=== PATIENT | female | born 1995 | race Caucasian/White ===

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

== ENCOUNTER 2018-12-23 18:41 | Inpatient (IN) | payer MEDICAID ==
[~2018-12-23] VITALS: Ht 142.2 cm; Wt 67.4 kg
[~2018-12-23 18:41] MED LIST changes: -DIAZ2.5K2 PR; -FER325 PO; +KEP100S PO; +LEVE500S8 PO; -LEVE500S9 PO; -MOTS PO; -UDTYL PO
[2018-12-23] MEDS ORDERED: LORAZEPAM 2 MG INJ ONE (18:56)
[2018-12-23] MEDS ORDERED: LEVETIRACETAM 1000 MG (PMX) 100 ML IVPB STA (18:58)
[2018-12-23] MEDS ORDERED: SOD CHLORIDE 0.9% 1,000 ML IV STA ×2 (18:58→19:47)
[2018-12-23] MEDS ORDERED: LORAZEPAM 2 MG INJ IV STA (18:58)
[2018-12-23] MEDS ORDERED: ALBUTEROL 0.5% (NEB) 2.5 MG/0.5 ML AMP INH STA (19:09)
[2018-12-23] MEDS ORDERED: IPRATROPIUM (NEB) 0.5 MG/2.5 ML AMP INH STA (19:09)
[2018-12-23] MEDS ORDERED: KETOROLAC 15 MG INJ IV STA ×2 (19:47→23:57)
[2018-12-23] MEDS ORDERED: ONDANSETRON 4 MG INJ IV PRN (21:30)
[2018-12-23] MEDS ORDERED: LORAZEPAM 2 MG INJ IV PRN (21:30)
[2018-12-23] MEDS: ACETAMINOPHEN 650 MG SUPP PR PRN (23:06)
[2018-12-23] MEDS: SOD CHLORIDE 0.9% 1,000 ML IV SCH (23:13)
[2018-12-24] VITALS (69 sets, daily range): BP systolic 63–125; BP diastolic 33–95; PULSE 57–142; RESP 0–82; Ht 142.2 cm; Wt 67.4 kg
[2018-12-24] MEDS ORDERED: VANCOMYCIN IV PER PHARMACY XX SCH
[2018-12-24] MEDS: AMPICILLIN/SULB 3 GM/NS (PMX) 100 ML IVPB SCH ×2 (00:11→05:25)
[2018-12-24] MEDS ORDERED: SOD CHLORIDE 0.9% 1,000 ML IV ONE (00:30)
[2018-12-24] MEDS: VANCOMYCIN 1 GM 250 ML IVPB SCH ×2 (01:16→14:50)
[2018-12-24] MEDS: ALBUMIN HUMAN 25% 100 ML IV SCH ×2 (02:01→04:07)
[2018-12-24] MEDS ORDERED: PHENYLephrine 20MG IN 250 ML 250 ML IV SCH (04:00)
[2018-12-24] MEDS: PHENYLephrine 20MG IN 250 ML 250 ML IV SCH ×2 (04:27→14:05)
[2018-12-24] MEDS: PANTOPRAZOLE 40 MG INJ IV SCH (05:25)
[2018-12-24] MEDS: LEVALBUTEROL (NEB) 0.63 MG/3 ML AMP HHN SCH ×4 (08:10→20:22)
[2018-12-24] MEDS: IPRATROPIUM (NEB) 0.5 MG/2.5 ML AMP HHN SCH ×4 (08:10→20:21)
[2018-12-24] MEDS: LEVETIRACETAM 500 MG (PMX) 100 ML IVPB SCH ×2 (09:05→20:09)
[2018-12-24] MEDS: KETOROLAC 30 MG INJ IV PRN ×2 (10:41→21:42)
[2018-12-24] MEDS: ACETAMINOPHEN 650 MG SUPP PR PRN ×2 (11:52→20:25)
[2018-12-24] MEDS: SOD CHLORIDE 0.9% 1,000 ML IV SCH ×2 (13:53→21:10)
[2018-12-24] MEDS: PIPER-TAZO 3.375 GM IV (PMX) 100 ML IVPB SCH ×2 (14:09→21:25)
[2018-12-25] VITALS (52 sets, daily range): BP systolic 79–124; BP diastolic 42–97; PULSE 70–120; RESP 14–110
[2018-12-25] MEDS: IPRATROPIUM (NEB) 0.5 MG/2.5 ML AMP HHN SCH ×6 (00:58→21:18)
[2018-12-25] MEDS: LEVALBUTEROL (NEB) 0.63 MG/3 ML AMP HHN SCH ×6 (00:58→21:18)
[2018-12-25] MEDS: VANCOMYCIN 750 MG (PMX) 250 ML IVPB SCH ×2 (01:28→09:53)
[2018-12-25] MEDS: KETOROLAC 30 MG INJ IV PRN ×2 (02:54→08:45)
[2018-12-25] MEDS: PANTOPRAZOLE 40 MG INJ IV SCH (05:31)
[2018-12-25] MEDS: PIPER-TAZO 3.375 GM IV (PMX) 100 ML IVPB SCH ×3 (05:31→21:34)
[2018-12-25] MEDS ORDERED: SOD CHLORIDE 0.9% 250 ML IV* ONE (06:03)
[2018-12-25] MEDS: PHENYLephrine 20MG IN 250 ML 250 ML IV SCH (06:27)
[2018-12-25] MEDS ORDERED: POTASSIUM CHLORIDE 50 ML ONE (06:34)
[2018-12-25] MEDS: POTASSIUM CHLORIDE 50 ML IVPB SCH ×3 (06:46→13:42)
[2018-12-25] MEDS ORDERED: ETOMIDATE 20 MG INJ ONE (07:00)
[2018-12-25] MEDS ORDERED: VECURONIUM 10 MG VIAL ONE (07:00)
[2018-12-25] MEDS ORDERED: MAGNESIUM SULFATE 2 GM/50 ML 50 ML IVPB ONE (08:00)
[2018-12-25] MEDS: LORAZEPAM 2 MG INJ IV PRN (08:15)
[2018-12-25] MEDS: LEVETIRACETAM 500 MG (PMX) 100 ML IVPB SCH ×2 (08:52→20:49)
[2018-12-25] MEDS: PROPOFOL 100 ML IV SCH ×2 (09:54→19:24)
[2018-12-25] MEDS ORDERED: SODIUM PHOSPHATE 15 MMOL in SOD CHLORIDE 0.9% 250 ML IVPB ONE (18:00)
[2018-12-25] MEDS: ACETAMINOPHEN 650 MG SUPP PR PRN (19:37)
[2018-12-26] VITALS (51 sets, daily range): BP systolic 64–112; BP diastolic 40–74; PULSE 76–120; RESP 16–27
[2018-12-26] MEDS: LEVALBUTEROL (NEB) 0.63 MG/3 ML AMP HHN SCH ×5 (01:15→17:09)
[2018-12-26] MEDS: IPRATROPIUM (NEB) 0.5 MG/2.5 ML AMP HHN SCH ×5 (01:15→17:09)
[2018-12-26] MEDS: LORAZEPAM 2 MG INJ IV PRN (05:16)
[2018-12-26] MEDS: PROPOFOL 100 ML IV SCH ×4 (05:42→23:04)
[2018-12-26] MEDS: PANTOPRAZOLE 40 MG INJ IV SCH (05:42)
[2018-12-26] MEDS: PIPER-TAZO 3.375 GM IV (PMX) 100 ML IVPB SCH ×3 (05:44→21:09)
[2018-12-26] MEDS: PHENYLephrine 20MG IN 250 ML 250 ML IV SCH ×3 (07:52→21:55)
[2018-12-26] MEDS ORDERED: POTASSIUM CHLORIDE 20 MEQ POWDER FOR ORAL SOLN NGT ONE (08:30)
[2018-12-26] MEDS: LEVETIRACETAM 500 MG (PMX) 100 ML IVPB SCH ×2 (08:43→20:08)
[2018-12-26] MEDS: THIAMINE 100 MG TAB NGT SCH (08:44)
[2018-12-26] MEDS ORDERED: MAGNESIUM SULFATE 2 GM/50 ML 50 ML IVPB ONE (09:00)
[2018-12-26] MEDS ORDERED: POTASSIUM CHLORIDE 20 MEQ POWDER FOR ORAL SOLN PO PRN ×3 (09:00)
[2018-12-26] MEDS: IPRATROPIUM (HFA) 12.9 GM INHALER INH SCH (21:59)
[2018-12-26] MEDS: LEVALBUTEROL (HFA) 15 GM INHALER INH SCH (21:59)
[2018-12-27] VITALS (69 sets, daily range): BP systolic 85–126; BP diastolic 43–79; PULSE 52–125; RESP 15–45
[2018-12-27] MEDS: IPRATROPIUM (HFA) 12.9 GM INHALER INH SCH ×6 (01:04→21:12)
[2018-12-27] MEDS: LEVALBUTEROL (HFA) 15 GM INHALER INH SCH ×6 (01:04→21:12)
[2018-12-27] MEDS: PHENYLephrine 20MG IN 250 ML 250 ML IV SCH ×2 (04:02→11:36)
[2018-12-27] MEDS: PANTOPRAZOLE 40 MG INJ IV SCH (05:19)
[2018-12-27] MEDS: PIPER-TAZO 3.375 GM IV (PMX) 100 ML IVPB SCH ×3 (05:20→21:25)
[2018-12-27] MEDS: PROPOFOL 100 ML IV SCH ×2 (07:28→20:20)
[2018-12-27] MEDS: THIAMINE 100 MG TAB NGT SCH (08:19)
[2018-12-27] MEDS: LEVETIRACETAM 500 MG (PMX) 100 ML IVPB SCH ×2 (08:19→20:17)
[2018-12-27] MEDS ORDERED: VANCOMYCIN IV PER PHARMACY XX SCH (09:00)
[2018-12-27] MEDS ORDERED: MAGNESIUM SULFATE 2 GM/50 ML 50 ML IVPB ONE (09:30)
[2018-12-27] MEDS: LEVOFLOXACIN 500MG/D5W (PMX) 100 ML IVPB SCH (10:39)
[2018-12-27] MEDS ORDERED: VANCOMYCIN 1.25 GM/NS 250 ML 250 ML IVPB SCH (11:00)
[2018-12-27] MEDS: VANCOMYCIN 750 MG (PMX) 250 ML IVPB SCH (12:03)
[2018-12-27] MEDS ORDERED: POTASSIUM PHOSPHATE 30 MM in SOD CHLORIDE 0.9% 250 ML IVPB ONE (12:30)
[2018-12-27] MEDS: ACETAMINOPHEN 650MG/20.3ML CUP NGT PRN (19:40)
[2018-12-28] VITALS (103 sets, daily range): BP systolic 84–125; BP diastolic 42–93; PULSE 69–130; RESP 15–53
[2018-12-28] MEDS: LEVALBUTEROL (HFA) 15 GM INHALER INH SCH ×6 (01:13→21:23)
[2018-12-28] MEDS: IPRATROPIUM (HFA) 12.9 GM INHALER INH SCH ×6 (01:13→21:23)
[2018-12-28] MEDS ORDERED: POLYETHYLENE GLYCOL 17 GM PACKET GTB PRN (02:00)
[2018-12-28] MEDS: ACETAMINOPHEN 650MG/20.3ML CUP NGT PRN ×2 (02:41→20:32)
[2018-12-28] MEDS: DOCUSATE SODIUM 10 MG/ML (10ML CUP) GTB SCH ×3 (02:41→20:32)
[2018-12-28] MEDS: PHENYLephrine 20MG IN 250 ML 250 ML IV SCH ×2 (03:03→18:17)
[2018-12-28] MEDS: PROPOFOL 100 ML IV SCH (04:04)
[2018-12-28] MEDS: VANCOMYCIN 750 MG (PMX) 250 ML IVPB SCH ×2 (04:15→12:32)
[2018-12-28] MEDS: PANTOPRAZOLE 40 MG INJ IV SCH (06:29)
[2018-12-28] MEDS: PIPER-TAZO 3.375 GM IV (PMX) 100 ML IVPB SCH ×3 (06:29→22:22)
[2018-12-28] MEDS ORDERED: MAGNESIUM SULFATE 3 GM in DEXTROSE 5% 100 ML IVPB ONE (07:00)
[2018-12-28] MEDS: LEVETIRACETAM 500 MG (PMX) 100 ML IVPB SCH ×2 (08:20→20:32)
[2018-12-28] MEDS: THIAMINE 100 MG TAB NGT SCH (08:21)
[2018-12-28] MEDS: LEVOFLOXACIN 500MG/D5W (PMX) 100 ML IVPB SCH (08:21)
[2018-12-28] MEDS: MIDAZOLAM 100 MG in SOD CHLORIDE 0.9% 80 ML IV SCH (13:27)
[2018-12-28] MEDS: FENTAnyl (DRIP) 1000 mcg/100mL 100 ML IV SCH (13:29)
[2018-12-28] MEDS: VANCOMYCIN 1 GM 250 ML IVPB SCH (18:21)
[2018-12-29] VITALS (99 sets, daily range): BP systolic 81–134; BP diastolic 42–83; PULSE 55–134; RESP 16–44
[2018-12-29] MEDS: ACETAMINOPHEN 650MG/20.3ML CUP NGT PRN (00:56)
[2018-12-29] MEDS: IPRATROPIUM (HFA) 12.9 GM INHALER INH SCH ×6 (01:06→20:02)
[2018-12-29] MEDS: LEVALBUTEROL (HFA) 15 GM INHALER INH SCH ×6 (01:07→20:02)
[2018-12-29] MEDS: VANCOMYCIN 1 GM 250 ML IVPB SCH ×3 (02:32→18:25)
[2018-12-29] MEDS: PANTOPRAZOLE 40 MG INJ IV SCH (05:02)
[2018-12-29] MEDS: PIPER-TAZO 3.375 GM IV (PMX) 100 ML IVPB SCH ×3 (05:03→21:57)
[2018-12-29] MEDS: FENTAnyl (DRIP) 1000 mcg/100mL 100 ML IV SCH ×2 (05:25→18:30)
[2018-12-29] MEDS: LEVETIRACETAM 500 MG (PMX) 100 ML IVPB SCH ×2 (09:39→21:01)
[2018-12-29] MEDS: THIAMINE 100 MG TAB NGT SCH (09:46)
[2018-12-29] MEDS: DOCUSATE SODIUM 10 MG/ML (10ML CUP) GTB SCH ×2 (09:46→21:01)
[2018-12-29] MEDS: LEVOFLOXACIN 500MG/D5W (PMX) 100 ML IVPB SCH (09:53)
[2018-12-29] MEDS: MIDAZOLAM 100 MG in SOD CHLORIDE 0.9% 80 ML IV SCH ×2 (09:56→22:16)
[2018-12-29] MEDS: PROPOFOL 100 ML IV SCH (10:00)
[2018-12-29] MEDS ORDERED: FUROSEMIDE 40 MG INJ IV STA (12:25)
[2018-12-29] MEDS: METHYLPREDNISOLONE 125 MG INJ IV SCH ×3 (12:35→23:33)
[2018-12-29] MEDS: PHENYLephrine 20MG IN 250 ML 250 ML IV SCH ×2 (14:56→23:36)
[2018-12-30] VITALS (40 sets, daily range): BP systolic 89–129; BP diastolic 49–80; PULSE 56–92; RESP 20–32
[2018-12-30] MEDS: LEVALBUTEROL (HFA) 15 GM INHALER INH SCH ×3 (01:59→09:54)
[2018-12-30] MEDS: IPRATROPIUM (HFA) 12.9 GM INHALER INH SCH ×3 (01:59→09:54)
[2018-12-30] MEDS: VANCOMYCIN 1 GM 250 ML IVPB SCH ×2 (02:42→12:23)
[2018-12-30] MEDS: METHYLPREDNISOLONE 125 MG INJ IV SCH (05:37)
[2018-12-30] MEDS: PANTOPRAZOLE 40 MG INJ IV SCH (05:37)
[2018-12-30] MEDS: PIPER-TAZO 3.375 GM IV (PMX) 100 ML IVPB SCH (05:41)
[2018-12-30] MEDS: FENTAnyl (DRIP) 1000 mcg/100mL 100 ML IV SCH (06:35)
[2018-12-30] MEDS: MIDAZOLAM 100 MG in SOD CHLORIDE 0.9% 80 ML IV SCH (08:52)
[2018-12-30] MEDS: DOCUSATE SODIUM 10 MG/ML (10ML CUP) GTB SCH (09:00)
[2018-12-30] MEDS: THIAMINE 100 MG TAB NGT SCH (09:00)
[2018-12-30] MEDS: LEVETIRACETAM 500 MG (PMX) 100 ML IVPB SCH (10:13)
[2018-12-30] MEDS: LEVOFLOXACIN 500MG/D5W (PMX) 100 ML IVPB SCH (11:16)
[2018-12-30] MEDS ORDERED: VANCOMYCIN 1.25 GM/NS 250 ML 250 ML IVPB SCH (20:00)
== END 2018-12-30 12:40 | disposition short-term general hospital (02) | DRG 870 ==
LOC: E/R 18:41 → ICU 21:02
PROVIDERS: ADMIT Family Medicine; ATTEND Internal Medicine
PROC: 5A1955Z Respiratory Ventilation, Greater than 96 Consecutive Hours (ICD-10-PCS; principal; 2018-12-25)
PROC: 0BH17EZ Insertion of Endotracheal Airway into Trachea, Via Natural or Artificial Opening (ICD-10-PCS; 2018-12-25)
PROC: 30233N1 Transfusion of Nonautologous Red Blood Cells into Peripheral Vein, Percutaneous Approach (ICD-10-PCS; 2018-12-25)
DX: A41.9 Sepsis, unspecified organism (principal); R65.21 Severe sepsis with septic shock; J69.0 Pneumonitis due to inhalation of food and vomit; J96.01 Acute respiratory failure with hypoxia; J80 Acute respiratory distress syndrome; N39.0 Urinary tract infection, site not specified; G40.901 Epilepsy, unspecified, not intractable, with status epilepticus; G80.9 Cerebral palsy, unspecified; D64.9 Anemia, unspecified; B95.5 Unspecified streptococcus as the cause of diseases classified elsewhere
CPT/HCPCS: 31500; 36415; 36430; 36573; 36600; 70450; 71045; 80048; 80053; 80069; 80177; 80202; 80307; 81001; 81025; 82803; 82962; 83036; 83540; 83605; 83735; 84100; 84132; 85025; 86850; 86900; 86901; 86920; 87070; 87081; 87086; 89220; 93005; 94003; 94640; 94644; 94660; 94664; 94770; 96361; 96374; 96375; A4310; C9113; J0295; J1885; J1940; J1953; J1956; J2060; J2250; J2370; J2543; J2930; J3010; J3370; J3475; J3480; J7030; J7040; J7050; P9016; P9047